=== PATIENT | male | born 1965 | race Caucasian/White ===

== ENCOUNTER 2016-04-14 23:40 | Emergency (ER) | payer MEDICAID ==
--- NOTE | 2016-04-15 00:09 | ED Physician Chart ---
Chief Complaint/HPI - Patient Information Date Seen:: 04/15/16 Time Seen:: 23:45 Chief Complaint:: Recurrent plugging of catheter History of Present Illness:: Pt. has had recurrent kidney stones and urinary stones since October. He has a urologist at [facility]. Pt. and were told no Urologist here. Offered to call [facility], but pt's. wants to go to [facility] now AMA. Warned of risks of infection, , etc.. Pt. has been on Cipro for weeks and now on Keflex and Flomax Historian:: Patient, Family Member () Review of Systems - Review of Systems General/Constitutional: No fever Neck: No neck pain GI: Vomiting (4 days ago) G/U: Dysuria, Other (inability to void ) Psychiatric: No prior psych history Neurological: No syncope Past Medical History - Past Medical History Past Medical History: Other (bladder stones.) Family History: None Social History: Smoker, Non Smoker, No Alcohol Surgical History: other (endoscopy) Medication Reviewed:: cipro and keflex. Flomax Physical Exam - Physical Examination General/Constitutional: Awake, Well-developed, well-nourished, Alert, GCS 15 Head: Atraumatic Eyes: Lids, conjuctiva normal, PERRL, EOMI Neck: Nontender Respiratory: Nl effort/Exclusion, Clear to Auscultation Cardio Vascular: RRR, No murmur, gallop, rubs GI: No tenderness/rebounding/guarding : No CVA tenderness Other comments:: Urinary catheter and leg bag in place. Pt. states there is no obstruction, he has emptied the bag several times. No obvious loss of urine around catheter. No other sign of infection. Extremities: No tenderness or effusion Neuro/Psych: Alert/oriented Misc: Normal back ED Septic Shock - . Is Septic Shock (SBP<90, OR Lactate>4 mmol\L) present?: No Reassessment (Disposition) - Reassessment Reassessment Condition:: Unchanged - Diagnosis Diagnosis:: Dx: Acute Dysuria (on antibiotics) associated with known bladder stones. - Aftercare/Follow up Instructions Notes:: Pt. and state they want a urologist tonight. They have been to several hospitals in last 2 or 3 days. Talked with pt. and . Offered to change catheter, etc., and they were very understanding, but want to go to a hospital which has a urologist on-call. Charge nurse Roly informs me that there is not even a urologist flight information expediter at [facility] at this time. - Patient Disposition Condition at Disposition:: Unchanged ED Discharge Plan - Patient Disposition Admit/Discharge/Transfer: AGAINST MEDICAL ADVICE Condition at Disposition: Unchanged
== END 2016-04-15 00:05 | disposition left against medical advice (07) ==
LOC: ER 23:40
DX: R30.0 Dysuria (principal); N20.0 Calculus of kidney; F17.200 Nicotine dependence, unspecified, uncomplicated
CPT/HCPCS: Z7502

== ENCOUNTER 2016-06-26 09:11 | Emergency (ER) | payer MEDICAID ==
[2016-06-26 09:30] VITALS: BP 122/76
--- NOTE | 2016-06-26 09:50 | ED Physician Chart ---
Chief Complaint/HPI - Patient Information Date Seen:: 06/26/16 Time Seen:: 09:50 Chief Complaint:: PAIN IN PENIS AND BLADDER STONES History of Present Illness:: This 50-year-old male presents with a history of chronic recurrent urinary tract infections due to having bladder stones. He has had an indwelling Hager since October 2015. Currently he is complaining of pain in the penis that is 10 over 10 in severity with no exacerbating or relieving factors. He denies any dysuria or urinary frequency. He has an indwelling Hager which is attached to a leg bag. No back pain. The patient has intermittent fever and chills, the most recent being yesterday. Patient states he does not tolerate morphine and that and that it causes agitation. He denies any psychiatric problems. The patient is been on Cipro intermittently over the past 6 months. The last time he received IV Rocephin was 6 weeks ago. Allergies:: Allergies Allergy/AdvReac Type Severity Reaction Status Date / Time No Known Allergies Allergy Verified 06/26/16 09:25 Vitals:: Vital Signs - 8 hr 06/26/16 06/26/16 09:29 09:30 Temp 98.0 F HR 81 RR 16 BP 122/76 122/76 O2 Sat % 100 Review of Systems - Review of Systems General/Constitutional: Fever, Chills, No weakness, No loss of appetite Skin: No skin lesions, No rash Head: No headache, Light headed (lightheadedness is intermittent.) Eyes: No pain, No diplopia (the patient has intermittent blurry vision.) ENT: No earache, No nasal drainage, No sore throat, No tinnitus Neck: No neck pain, No stiffness, No mass noted Cardio Vascular: No chest pain Pulmonary: Cough, No sputum (intermittent respiratory distress. None at the present time.) GI: Nausea, No vomiting, No diarrhea, No pain, No hematemesis G/U: No dysuria, No frequency, Hematuria, Other (urine appears cloudy and the leg bag.) Musculoskeletal: Bone or joint pain, No back pain, No muscle pain Psychiatric: No prior psych history, No depression, No suicidal ideation Hematopoietic: No bruising, No lymphadenopathy Allergic/Immuno: No urticaria, No angioedema Neurological: No syncope, No focal symptoms, No weakness, No paresthesia, No headache, No confusion, No vertigo Past Medical History - Past Medical History Past Medical History: No significant medical hx, Other (the patient denies a history of diabetes, hypertension, asthma, or seizure disorder.) Social History: Smoker (1 pack a day smoker.), Alcohol, Illicit Drug Use (uses marijuana.), Surgical History: None, other (had cystoscopy 5 weeks ago.) Family Medical History - Family Member Sister Ethnicity: Physical Exam - Physical Examination General/Constitutional: Awake, Well-developed, well-nourished, Non-toxic appearing, Ambulatory Other Gen/Cons comments:: The patient rates his pain as being 10 over 10 but does not appear to be in any acute distress. Head: Atraumatic Eyes: Lids, conjuctiva normal, PERRL, EOMI Skin: No rash, No skin lesions, No ecchymosis, Well hydrated ENMT: External ears, nose nl, Nasal exam nl, Lips, teeth, gums nl, Oropharynx nl , Tonsils nl Neck: Nontender, Full ROM w/o pain, No JVD, No nuchal rigidity, No bruit, No mass, No stridor Respiratory: Nl effort/Exclusion, Clear to Auscultation, No Wheeze/Rhonchi/Rales Cardio Vascular: RRR, No murmur, gallop, rubs, NL S1 S2 Other Cardio Vascular comments:: Patient has good pulses in all 4 extremities. GI: No tenderness/rebounding/guarding, No organomegaly, No hernia, Normal BS's, Nondistended, No mass/bruits, No McBurney tenderness : No CVA tenderness (external genitalia appear normal except for the presence of a urinary catheter.) Extremities: No tenderness or effusion, Full ROM, No edema Other Extremities comments:: Excellent strength in all 4 extremities. Neuro/Psych: Alert/oriented, Normal sensory exam, Normal motor strength, Judgement/insight normal, Mood normal, Normal gait, No focal deficits Misc: Normal back, No paraspinal tenderness Labs/Radiology/EKG Results - Lab Results Results: Laboratory Tests 06/26/16 06/26/16 06/26/16 09:45 10:12 10:12 WBC 7.6 RBC 4.10 L Hgb 13.7 Hct 37.9 L MCV 92.4 MCH 33.3 H MCHC Differential 36.1 H RDW 12.7 Plt Count 319 MPV 7.6 Neutrophils % 66.8 Lymphocytes % 19.0 L Monocytes % 8.0 Eosinophils % 6.2 H Basophils % 0.0 Sodium Potassium Chloride Carbon Dioxide Anion Gap BUN Creatinine Est GFR ( Amer) Est GFR (Non-Af Amer) BUN/Creatinine Ratio Glucose Whole Bld Lactic Acid 0.91 Calcium Urine Source [place] Urine Color YELLOW Urine Clarity CLOUDY Urine pH 5.5 Ur Specific [place] 1.030 Urine Protein 100 H Urine Glucose (UA) NEGATIVE Urine Ketones NEGATIVE Urine Blood LARGE H Urine Nitrate POSITIVE H Urine Bilirubin NEGATIVE Urine Urobilinogen 0.2 Ur Leukocyte Esterase SMALL H Urine RBC 50-100 H Urine WBC >100 H Ur Epithelial Cells RARE Urine Bacteria MANY 06/26/16 11:00 WBC RBC Hgb Hct MCV MCH MCHC Differential RDW Plt Count MPV Neutrophils % Lymphocytes % Monocytes % Eosinophils % Basophils % Sodium 136 Potassium 3.6 Chloride 110 H Carbon Dioxide 24.3 Anion Gap 5.3 L BUN 21 Creatinine 0.8 Est GFR ( Amer) > 60.0 Est GFR (Non-Af Amer) > 60.0 BUN/Creatinine Ratio 26.3 Glucose 105 Whole Bld Lactic Acid Calcium 8.8 Urine Source Urine Color Urine Clarity Urine pH Ur Specific [place] Urine Protein Urine Glucose (UA) Urine Ketones Urine Blood Urine Nitrate Urine Bilirubin Urine Urobilinogen Ur Leukocyte Esterase Urine RBC Urine WBC Ur Epithelial Cells Urine Bacteria No leukocytosis and normal renal function studies. No sepsis. Chronic/ recurrent UTI. Assessment - Assessment General Assessment: CASE SUMMARY: This 50-year-old male presents with penis pain that has been intermittent over the past 6 months. Has cystoscopy 6 weeks ago which showed inflammation of the urinary bladder and bladder stones. He has an indwelling Hager and the urine has turned cloudy. He is had intermittent fever and chills over the past couple of days. On physical examination there was no suprapubic tenderness and no CVA tenderness. There is no inflammation of the urethral meatus. Patient was treated with 1 mg of Dilaudid IV for his pain and he was given 2 g of ceftriaxone intravenously. He will be discharged with a prescription for cephalexin 500 mg to be taken 4 times a day for 10 days. Patient was advised to follow-up with his urologist this coming week. If his symptoms return or worsen he should return to the emergency department. MDM DDX PENAL PAIN: NOT pyelonephritis based on his history and examination, vital signs and laboratory results consistent with normal renal function. NOT Testicular torsion based on exam. NOT Cellulites of penis based on exam ED Septic Shock - . Is Septic Shock (SBP<90, OR Lactate>4 mmol\L) present?: No - <6hrs of presentation: Vital Signs: Vital Signs - 8 hr 06/26/16 06/26/16 09:29 09:30 Temp 98.0 F HR 81 RR 16 BP 122/76 122/76 O2 Sat % 100 Reassessment (Disposition) - Reassessment Reassessment Condition:: Improved - Diagnosis Diagnosis:: URINARY BLADDER STONES, UTI - Aftercare/Follow up Instructions Aftercare/Follow-Up Instructions:: Counseled pt regarding lab results/diagnosis & need follow up, Counseled pt & family regarding lab results/diagnosis & need follow up - Patient Disposition Discharge/Transfer:: Home
[2016-06-26 09:55] LABS: URINE BILIRUBIN NEGATIVE (NEGATIVE); URINE COLOR YELLOW; URINE GLUCOSE (UA) NEGATIVE (NEGATIVE); URINE KETONE NEGATIVE (NEGATIVE)
[2016-06-26 09:56] LABS: URINE BLOOD LARGE (NEGATIVE); URINE PH 5.5; URINE PROTEIN 100 mg/dL (NEGATIVE); URINE UROBILINOGEN 0.2 E.U./dL (0.2 - 1.0)
[2016-06-26] MEDS ORDERED: Sodium Chloride 0.9% 1,000 ML IV ONE (10:00)
[2016-06-26] MEDS ORDERED: HYDROmorphone 1 mg/mL 1mL Syr IVP STA (10:01)
[2016-06-26] MEDS ORDERED: HYDROmorphone 1 mg/mL 1mL Syr ONE (10:04)
[2016-06-26 10:17] LABS: URINE RBC 50-100 /hpf (0-5)
[2016-06-26 10:18] LABS: URINE EPITHELIAL CELLS RARE /lpf (FEW); URINE WBC >100 /hpf (0-5)
[2016-06-26 10:19] LABS: URINE BACTERIA MANY /hpf (NONE SEEN)
[2016-06-26] MEDS ORDERED: cefTRIAXone 2 GM in Sodium Chloride 0.9% 100 ML IV ONE (10:24)
[2016-06-26 10:44] LABS: % EOSINOPHILS 6.2 % (0.0-5.0); % NEUTROPHILS 66.8 % (40.0-80.0); HEMATOCRIT 37.9 % (39.0-49.0); HEMOGLOBIN 13.7 gm/dL (13.2-17.3); MEAN CELL VOLUME 92.4 fl (80-99); MEAN CORPUSCULAR HEMOGLOBIN 33.3 pg (26.0-30.0); MEAN CORPUSCULAR HGB CONC 36.1 pg (28.0-36.0); MEAN PLATELET VOLUME 7.6 fl; NEUTROPHILE ABSOLUTE 5.1 Th/cmm (1.8-8.0); PLATELET COUNT 319 Th/cmm (150-400); RED CELL DISTRIBUTION WIDTH 12.7 % (11.5-20.0); WHITE BLOOD COUNT 7.6 Th/cmm (4.8-10.8)
[2016-06-26 11:02] LABS: ANION GAP 5.3 (7.0-16.0); BUN - UREA NITROGEN 21 mg/dL (7-25); BUN/CREATININE RATIO 26.3; CALCIUM SERUM 8.8 mg/dL (8.6-10.3); CARBON DIOXIDE 24.3 mEq/L (21.0-31.0); CHLORIDE 110 mEq/L (98-107); CREATININE - SERUM 0.8 mg/dL (0.7-1.3); GLUCOSE 105 mg/dL (70-105); POTASSIUM SERUM 3.6 mEq/L (3.5-5.1); SODIUM SERUM 136 mEq/L (136-145)
== END 2016-06-26 11:40 | disposition home or self-care (01) ==
LOC: ER 09:11
DX: N21.0 Calculus in bladder (principal); N39.0 Urinary tract infection, site not specified; E11.9 Type 2 diabetes mellitus without complications; I10 Essential (primary) hypertension; J45.909 Unspecified asthma, uncomplicated; G40.909 Epilepsy, unspecified, not intractable, without status epilepticus; F17.210 Nicotine dependence, cigarettes, uncomplicated; F12.90 Cannabis use, unspecified, uncomplicated; Z98.890 Other specified postprocedural states
CPT/HCPCS: 99284; 96365; 96375; 36415; 83605; 85025; 87086; 81001; 80048; 87040 ×2; J2405; J0696 ×2; 82310-TC; 82374-TC; 82435-TC; 82947-TC; 84132-TC; 84295-TC; 84520-TC; J1170; J7030; Z7502; Z7610

== ENCOUNTER 2016-07-17 12:04 | Emergency (ER) | payer MEDICAID ==
--- NOTE | 2016-07-17 12:10 | ED Physician Chart ---
Chief Complaint/HPI - Patient Information Date Seen:: 07/17/16 Time Seen:: 12:05 Chief Complaint:: Obrien catheter malfunction History of Present Illness:: 50-year-old male with history of urinary retention and currently has indwelling Obrien catheter, presents with acute, severe Obrien catheter malfunction that started about 20 minutes prior to arrival. Has associated increasing supra- pubic pain. Apparently has underlying UTI with for which she is taking ciprofloxacin. Sees urology regularly. No alleviating or exacerbating factors at this time. Allergies:: Allergies Allergy/AdvReac Type Severity Reaction Status Date / Time No Known Allergies Allergy Verified 06/26/16 09:25 Historian:: Patient Review:: Nurse's Note Reviewed Review of Systems - Review of Systems Other: Complete system review otherwise unremarkable except as noted in history of present illness. Past Medical History - Past Medical History Past Medical History: Other (urinary retention) Family History: None Social History: Non Smoker, No Alcohol, No Drug Use, Other Surgical History: None Psychiatricy History: None Medication: Reviewed Family Medical History - Family Member Sister Ethnicity: Physical Exam - Physical Examination Other:: INITIAL VITAL SIGNS: Reviewed by me GENERAL: Alert and interactive. Mild distress due to pain. HEAD: Head is normocephalic and atraumatic EYES: EOMI. PERRL. No scleral icterus. No conjunctival injection ENT: Moist mucous membranes. NECK: Supple. No masses. Full range of motion RESPIRATORY: No tachypnea. Clear breath sounds bilaterally. No wheezing, rales, or rhonchi CV: Regular rate and rhythm. No murmurs, rubs, or gallops ABDOMEN: Soft, non-distended, non-tender. No guarding. No rebound. No masses. EXTREMITIES: No deformity. No cyanosis. No edema. SKIN: Warm and dry. No obvious rashes. NEUROLOGIC: Alert and oriented. Face is symmetric. Speech is normal. Moves all extremities equally. Motor and sensory distally intact. ED Septic Shock - . Is Septic Shock (SBP<90, OR Lactate>4 mmol\L) present?: No Reassessment (Disposition) - Reassessment Reassessment:: Obrien catheter malfunction. Had again acute urinary retention causing suprapubic pain. Replaced Obrien catheter. Working well. Suprapubic pain improved. Continue antibiotics for UTI. Follow-up urology within 2-3 days. Follow-up with PCP in one to 2 days. Gave return to ER precautions. Patient understands and agrees with the plan. Blood pressure was noted to be elevated over 120/80. There were no signs of hypertension. Discussed the findings with the patient and recommended that the patient follow up with the primary care physician regarding the elevated blood pressure. Reassessment Condition:: Improved - Diagnosis Diagnosis:: Acute malfunction of Obrien catheter Acute suprapubic pain due to acute urinary retention - Aftercare/Follow up Instructions Aftercare/Follow-Up Instructions:: Counseled pt regarding lab results/diagnosis & need follow up, Refer to Discharge Instructions Medication Prescribed:: Cephalexin - Patient Disposition Discharge/Transfer:: Home Time:: 12:27 Condition at Disposition:: Improved ED Discharge Plan - Patient Disposition Admit/Discharge/Transfer: PT DISCHARGED HOME Condition at Disposition: Improved Instructions: Obrien Catheter Care, Adult
[2016-07-17] MEDS ORDERED: Dexamethasone Sodium Phos 4 mg/mL Vial IM STA ×2 (12:25→12:47)
[2016-07-17] MEDS ORDERED: Dexamethasone Sodium Phos 10 mg/mL PF Vial ONE (12:26)
[2016-07-17] MEDS ORDERED: Morphine Sulfate 2 mg/mL 1mL Syr IVP ONE (12:28)
[2016-07-17] MEDS ORDERED: Morphine Sulfate 2 mg/mL 1mL Syr ONE (12:29)
[2016-07-17 12:55] VITALS: BP 140/74
[2016-07-17 13:02] LABS: URINE BILIRUBIN NEGATIVE (NEGATIVE); URINE COLOR YELLOW; URINE GLUCOSE (UA) NEGATIVE (NEGATIVE); URINE KETONE TRACE mg/dL (NEGATIVE)
[2016-07-17 13:03] LABS: URINE BLOOD MODERATE (NEGATIVE); URINE PROTEIN >300 mg/dL (NEGATIVE); URINE RBC 50-100 /hpf (0-5); URINE UROBILINOGEN 0.2 E.U./dL (0.2 - 1.0)
[2016-07-17 13:04] LABS: URINE BACTERIA MANY /hpf (NONE SEEN); URINE EPITHELIAL CELLS FEW /lpf (FEW); URINE WBC 50-100 /hpf (0-5)
[2016-07-17 13:09] LABS: AMPHETAMINE URINE POSITIVE (NEGATIVE); BARBITURATES URINE NEGATIVE (NEGATIVE); METHADONE URINE NEGATIVE (NEGATIVE)
== END 2016-07-17 13:10 | disposition home or self-care (01) ==
LOC: ER 12:04
DX: Z46.6 Encounter for fitting and adjustment of urinary device (principal); R33.9 Retention of urine, unspecified; Z91.040 Latex allergy status; Z91.048 Other nonmedicinal substance allergy status
CPT/HCPCS: 99284; 96372 ×3; 51702; 80307; 87086; 81001; J1885; J2060; J2270; Z7502; Z7610

== ENCOUNTER 2016-07-17 17:38 | Emergency (ER) | payer MEDICAID ==
--- NOTE | 2016-07-17 17:39 | ED Physician Chart ---
Chief Complaint/HPI - Patient Information Date Seen:: 07/17/16 Time Seen:: 17:39 Chief Complaint:: Obrien catheter malfunction History of Present Illness:: 50-year-old male history of urinary retention and history of using indwelling Obrien, seen here previously for Obrien catheter replacement after malfunction, presents with acute, severe, Obrien catheter malfunction happened about 10 minutes prior to arrival. Says he was just sitting in bed and heard an audible "pop" and then the Obrien self extracted. Has associated acute urinary retention /inability to urinate. Denies any gross hematuria, abdominal pain, nausea, vomiting. Allergies:: Allergies Allergy/AdvReac Type Severity Reaction Status Date / Time Latex, Natural Rubber Allergy Verified 07/17/16 12:19 Historian:: Patient Review:: Nurse's Note Reviewed Review of Systems - Review of Systems Other: Complete system review otherwise unremarkable except as noted in history of present illness. Past Medical History - Past Medical History Past Medical History: Other (urinary retention) Family History: None Social History: Smoker, No Alcohol, No Drug Use, Other Surgical History: None Psychiatricy History: None Medication: Reviewed Family Medical History - Family Member Sister Ethnicity: Physical Exam - Physical Examination Other:: INITIAL VITAL SIGNS: Reviewed by me GENERAL: Alert and interactive. No acute distress HEAD: Head is normocephalic and atraumatic EYES: EOMI. PERRL. No scleral icterus. No conjunctival injection ENT: Moist mucous membranes. NECK: Supple. No masses. Full range of motion RESPIRATORY: No tachypnea. Clear breath sounds bilaterally. No wheezing, rales, or rhonchi CV: Regular rate and rhythm. No murmurs, rubs, or gallops ABDOMEN: Soft, non-distended, non-tender. No guarding. No rebound. No masses. EXTREMITIES: No deformity. No cyanosis. No edema. SKIN: Warm and dry. No obvious rashes. NEUROLOGIC: Alert and oriented. Face is symmetric. Speech is normal. Moves all extremities equally. Motor and sensory distally intact. ED Septic Shock - . Is Septic Shock (SBP<90, OR Lactate>4 mmol\\L) present?: No Reassessment (Disposition) - Reassessment Reassessment:: Acute Obrien malfunction. Patient claims he heard an audible "pop" in the Obrien catheter self extracted. We replaced the Obrien catheter. We checked that it was secured in place with properly inflated balloon. Gave like back. Follow- up with urology in 2-3 days. Return to ER precautions given. He says he understands and agrees the plan. Blood pressure was noted to be elevated over 120/80. There were no signs of hypertension. Discussed the findings with the patient and recommended that the patient follow up with the primary care physician regarding the elevated blood pressure. Reassessment Condition:: Improved - Diagnosis Diagnosis:: Acute Obrien catheter malfunction Acute urinary retention Elevated blood pressure without the diagnosis of hypertension - Aftercare/Follow up Instructions Aftercare/Follow-Up Instructions:: Counseled pt regarding lab results/diagnosis & need follow up, Refer to Discharge Instructions - Patient Disposition Discharge/Transfer:: Home Time:: 17:46 Condition at Disposition:: Improved ED Discharge Plan - Patient Disposition Admit/Discharge/Transfer: PT DISCHARGED HOME Condition at Disposition: Improved Instructions: Obrien Catheter Care, Adult
== END 2016-07-17 18:00 | disposition home or self-care (01) ==
LOC: ER 17:38
DX: Z46.6 Encounter for fitting and adjustment of urinary device (principal); R33.9 Retention of urine, unspecified; R03.0 Elevated blood-pressure reading, without diagnosis of hypertension; F17.200 Nicotine dependence, unspecified, uncomplicated; Z91.040 Latex allergy status; Z91.048 Other nonmedicinal substance allergy status
CPT/HCPCS: Z7502; Z7610

== ENCOUNTER 2016-07-30 14:25 | Emergency (ER) | payer MEDICAID ==
[2016-07-30 14:34] VITALS: BP 135/74
== END 2016-07-30 14:47 | disposition left against medical advice (07) ==
LOC: ER 14:25
DX: Z46.6 Encounter for fitting and adjustment of urinary device (principal); Z91.040 Latex allergy status; Z91.048 Other nonmedicinal substance allergy status
CPT/HCPCS: Z7610

== ENCOUNTER 2016-08-21 08:01 | Emergency (ER) | payer MEDICAID ==
[2016-08-21 08:13] VITALS: BP 114/64
--- NOTE | 2016-08-21 08:42 | ED Physician Chart ---
Chief Complaint/HPI - Patient Information Date Seen:: 08/21/16 Time Seen:: 08:20 Chief Complaint:: need cath changed every 30 days History of Present Illness:: History of present illness. The patient presents with a history of chronic indwelling catheter placement for bladder stones which requires changing every 30 days. The patient states that it has been 32 days since his last catheter change and he has been experiencing increasing urinary retention and leakage around the catheter. The patient specifically denies fever chills unusual urine smell excessive abdominal pain trouble eating abnormal bowel habits and otherwise simply wishes to have his catheter changed. In addition, the patient states he has intermittently been taking antibiotics from his physician, the last one being cephalexin which he states stopped taking himself several weeks ago because he states that chronic antibiotics aren't good for his immune system. Allergies:: Allergies Allergy/AdvReac Type Severity Reaction Status Date / Time Latex, Natural Rubber Allergy Verified 07/17/16 12:19 Vitals:: Vital Signs - 8 hr 08/21/16 08/21/16 08:12 08:13 Temp 97.7 F HR 86 RR 17 BP 114/64 114/64 O2 Sat % 96 Historian:: Patient Review:: Nurse's Note Reviewed Review of Systems - Review of Systems General/Constitutional: No fever, No chills, No weight loss, No loss of appetite Skin: No skin lesions Head: No headache Eyes: No loss of vision, No pain, No diplopia ENT: No earache, No nasal drainage, No sore throat, No tinnitus Neck: No neck pain, No swelling, No thyromegaly, No stiffness, No mass noted Cardio Vascular: edema (pt states occ ankle edema, otherwise no c/o) Pulmonary: No SOB, No cough, No sputum, No wheezing GI: No nausea, No vomiting, No diarrhea, No pain, No constipation G/U: Other (has chronic indwelling cath) Musculoskeletal: No bone or joint pain, No back pain, No muscle pain Endocrine: No polydipsia Hematopoietic: No bruising, No lymphadenopathy Neurological: No syncope, No focal symptoms, No weakness, No paresthesia, No headache, No seizure, No dizziness, No confusion, No vertigo Other: pt states no c/o Past Medical History - Past Medical History Past Medical History: PUD/GERD, Renal stone (bladder stones chronic indwelling cath), Other (bladder stones) Social History: Smoker, No Alcohol, , Other (the pt states no current or recent drug use but has tested positive for meth in the past) Surgical History: None, other (awaiting planned lithotripsy per spouse) Psychiatricy History: None Medication: Reviewed Medication Reviewed:: pt has stopped cephalexin himself, feels he doesnt need to be on it 'all the time' and denies any s/sx of UTI which he states he is 'very familiar with'. Family Medical History - Family Member Sister History Unknown: Yes Ethnicity: Hx Family Coronary Artery Disease: No Hx Family Congestive Heart Failure: No Hx Family Hypertension: No Hx Family Diabetes: No Hx Family COPD: No Physical Exam - Physical Examination General/Constitutional: Awake, Well-developed, well-nourished, Alert, No distress, GCS 15, Non-toxic appearing, Ambulatory Head: Atraumatic Eyes: Lids, conjuctiva normal, PERRL, EOMI Skin: Nl inspection, No rash, No skin lesions, No ecchymosis, Well hydrated, No lymphadenopathy ENMT: External ears, nose nl, Nasal exam nl, Lips, teeth, gums nl, Oropharynx nl Neck: No JVD, No nuchal rigidity, No stridor Respiratory: Nl effort/Exclusion, Clear to Auscultation, No Wheeze/Rhonchi/Rales Cardio Vascular: RRR, No murmur, gallop, rubs, NL S1 S2 GI: No tenderness/rebounding/guarding, No organomegaly, No hernia, Normal BS's, Nondistended, No mass/bruits, No McBurney tenderness : No CVA tenderness, NL external genitalia, No discharge Extremities: No tenderness or effusion, Full ROM, normal strength in all extremities, Normal digits & nails Other Extremities comments:: trace ankle pit edema bilat equal Neuro/Psych: Alert/oriented, DTR's symmetric, Normal motor strength, Judgement/ insight normal, Mood normal, Normal gait, No focal deficits Misc: normal gait, Normal back, No paraspinal tenderness Labs/Radiology/EKG Results - Lab Results Results: urine with few rbc's, few wbcs (50), protein, mod bacteria, trace leuk esterase. do not advise culture at this time. pos for meth, mj ED Septic Shock - . Is Septic Shock (SBP<90, OR Lactate>4 mmol\L) present?: No - <6hrs of presentation: Vital Signs: Vital Signs - 8 hr 08/21/16 08/21/16 08:12 08:13 Temp 97.7 F HR 86 RR 17 BP 114/64 114/64 O2 Sat % 96 Reassessment (Disposition) - Reassessment Reassessment:: Reassessment at 090 8 AM. The nurse states that the removal of the old Alfonso catheter and replacement with a new Alfonso catheter was uneventful and tolerated by the patient well. During the initial evaluation of the patient he was told that any additional controlled substances necessary for chronic recurrent pain needed to come from his primary care provider. the pt was informed of UA results but doesnt wish to restart antibx because ' there is always a little infection and i don't want to mess up my immune system. Reassessment Condition:: Improved - Diagnosis Diagnosis:: 1)chronic urinary indwelling catheter with acute failure and urinary retention, leakage 2)bladder stones, awaiting surgery/lithotripsy per pt hx 3)chronic UTI, occ self treated per pt hx; no sx acute UTI at time of this evaluation. 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 pt advised to seek f/u promptly with his PMD regarding structured protocol for antibx usage for chronic UTI related to indwelling alfonso cath, or for pain control issues. drink lots of fluids. Accepting Physician: Rosie Witt [[place]] - 1-3 Days
[2016-08-21 09:20] LABS: URINE BILIRUBIN NEGATIVE (NEGATIVE); URINE BLOOD MODERATE (NEGATIVE); URINE COLOR RED; URINE GLUCOSE (UA) NEGATIVE (NEGATIVE); URINE KETONE NEGATIVE (NEGATIVE)
[2016-08-21 09:21] LABS: URINE PH 5.5; URINE PROTEIN >300 mg/dL (NEGATIVE); URINE RBC 25-50 /hpf (0-5); URINE UROBILINOGEN 0.2 E.U./dL (0.2 - 1.0); URINE WBC 25-50 /hpf (0-5)
[2016-08-21 09:22] LABS: URINE BACTERIA MODERATE /hpf (NONE SEEN); URINE EPITHELIAL CELLS MODERATE /lpf (FEW); URINE URIC ACID CRYSTALS FEW /hpf (NONE SEEN)
[2016-08-21 09:23] LABS: AMPHETAMINE URINE POSITIVE (NEGATIVE); BARBITURATES URINE NEGATIVE (NEGATIVE); METHADONE URINE NEGATIVE (NEGATIVE)
== END 2016-08-21 09:30 | disposition home or self-care (01) ==
LOC: ER 08:01
DX: T83.031A Leakage of indwelling urethral catheter, initial encounter (principal); Z46.6 Encounter for fitting and adjustment of urinary device; N21.0 Calculus in bladder; N39.0 Urinary tract infection, site not specified; F15.90 Other stimulant use, unspecified, uncomplicated; K21.9 Gastro-esophageal reflux disease without esophagitis; F17.200 Nicotine dependence, unspecified, uncomplicated; Z91.040 Latex allergy status; Z91.09 Other allergy status, other than to drugs and biological substances
CPT/HCPCS: 81001-TC; 87086-90; Z7502; Z7610